=== PATIENT | male | born 1940 | race Caucasian/White ===

== ENCOUNTER 2020-03-30 14:35 | Inpatient (IN) ==
[2020-03-30] MEDS ORDERED: NON-FORMULARY MEDICATION 1 EACH EACH (Magic Mouthwash [Magic Mouthwash Blm] 10 ML) PO PRN (16:26)
[2020-03-30] MEDS ORDERED: dexAMETHasone 4 MG TABLET PO SCH (16:30)
[2020-03-30] MEDS: *HR* Metformin 500 MG TABLET PO SCH (18:57)
[2020-03-30] MEDS: *HR* Amiodarone 200 MG TABLET PO SCH (20:01)
[2020-03-30] MEDS: Apixaban 5 MG TABLET PO SCH (20:02)
[2020-03-31 06:25] LABS: Basophils % 0.3 %; Eosinophils % 0.2 %; Hematocrit 27.1 % (37.5-50.1); Hemoglobin 8.7 g/dL (12.9-16.9); Immature Granulocytes % 5.9 % (0-4); Lymphocytes # 0.9 K/mcL (0.6-4.6); Lymphocytes % 15.2 %; Mean Corpuscular HGB Conc 32.1 g/dL (31.6-35.5); Mean Corpuscular Hemoglobin 29.8 pg (28.0-33.3); Mean Corpuscular Volume 92.8 fL (83.0-100.0); Mean Platelet Volume 10.2 fL (9.4-12.4); Monocytes # 0.6 K/mcL (0.0-1.3); Neutrophils # 4.1 K/mcL (1.6-8.9); Platelet Count 365 K/mcL (140-400); Red Blood Count 2.92 M/mcL (4.19-5.50); Red Cell Distribution Width 21.3 % (11.5-14.5); Segmented Neutrophils % 68.4 %
[2020-03-31 06:44] LABS: BUN/Creatinine Ratio 7 (6-26); Blood Urea Nitrogen 10 mg/dL (8-23); Calcium 6.4 mg/dL (8.6-10.3); Carbon Dioxide 21 mEq/L (23-29); Chloride 110 mEq/L (98-107); Glucose 87 mg/dL (70-105); Osmolality,Calculated 290 (280-300); Phosphorous 2.2 mg/dL (2.7-4.5); Sodium 141 mEq/L (136-145); eGFR For African Americans > 60 (> 60); eGFR For Non-African Americans 52 (> 60)
[2020-03-31] MEDS ORDERED: *HR* Pioglitazone 15 MG TABLET PO SCH (09:00)
[2020-03-31] MEDS: *HR* Amiodarone 200 MG TABLET PO SCH ×2 (09:07→19:45)
[2020-03-31] MEDS: Apixaban 5 MG TABLET PO SCH ×2 (09:07→19:46)
[2020-03-31] MEDS: Folic Acid 1 MG TABLET PO SCH (09:08)
[2020-03-31] MEDS: *HR* Metformin 500 MG TABLET PO SCH ×2 (09:08→16:01)
[2020-03-31] MEDS: ANORO ELLIPTA IH SCH (09:39)
[2020-03-31] MEDS: Ipratropium/Albuterol Neb 3 ML IH SCH (09:39)
[2020-03-31 18:17] LABS: Folate > 22.3 ng/mL (3.0-16.0); Vitamin B12 > 1500 pg/mL (250-1100)
[2020-04-01] MEDS: *HR* Metformin 500 MG TABLET PO SCH ×2 (08:18→15:58)
[2020-04-01] MEDS: Folic Acid 1 MG TABLET PO SCH (08:18)
[2020-04-01] MEDS: Apixaban 5 MG TABLET PO SCH ×2 (08:18→21:41)
[2020-04-01] MEDS: *HR* Amiodarone 200 MG TABLET PO SCH ×2 (08:18→21:41)
[2020-04-01] MEDS: ANORO ELLIPTA IH SCH (08:42)
[2020-04-01] MEDS: Ipratropium/Albuterol Neb 3 ML IH SCH (08:42)
[2020-04-01 14:41] LABS: Hematocrit 30.4 % (37.5-50.1); Hemoglobin 9.6 g/dL (12.9-16.9); Mean Corpuscular HGB Conc 31.6 g/dL (31.6-35.5); Mean Corpuscular Hemoglobin 30.4 pg (28.0-33.3); Mean Corpuscular Volume 96.2 fL (83.0-100.0); Mean Platelet Volume 9.8 fL (9.4-12.4); Platelet Count 294 K/mcL (140-400); Red Blood Count 3.16 M/mcL (4.19-5.50); Red Cell Distribution Width 21.5 % (11.5-14.5)
[2020-04-01 14:56] LABS: Calcium 6.4 mg/dL (8.6-10.3); Potassium 3.2 mEq/L (3.5-5.1)
[2020-04-02] MEDS: Apixaban 5 MG TABLET PO SCH ×2 (08:23→20:48)
[2020-04-02] MEDS: Folic Acid 1 MG TABLET PO SCH (08:24)
[2020-04-02] MEDS: *HR* Amiodarone 200 MG TABLET PO SCH ×2 (08:24→20:48)
[2020-04-02] MEDS: *HR* Metformin 500 MG TABLET PO SCH ×2 (08:25→17:00)
[2020-04-02] MEDS: Ipratropium/Albuterol Neb 3 ML IH SCH (10:39)
[2020-04-02] MEDS: ANORO ELLIPTA IH SCH (10:40)
[2020-04-03] MEDS: Apixaban 5 MG TABLET PO SCH ×2 (08:36→21:10)
[2020-04-03] MEDS: *HR* Amiodarone 200 MG TABLET PO SCH ×2 (08:37→21:10)
[2020-04-03] MEDS: Folic Acid 1 MG TABLET PO SCH (08:37)
[2020-04-03] MEDS: *HR* Metformin 500 MG TABLET PO SCH ×2 (08:37→16:52)
[2020-04-03] MEDS: Ipratropium/Albuterol Neb 3 ML IH SCH (10:02)
[2020-04-03] MEDS: ANORO ELLIPTA IH SCH (10:03)
[2020-04-04 07:08] LABS: Hematocrit 27.8 % (37.5-50.1); Hemoglobin 8.5 g/dL (12.9-16.9); Mean Corpuscular HGB Conc 30.6 g/dL (31.6-35.5); Mean Corpuscular Hemoglobin 29.1 pg (28.0-33.3); Mean Corpuscular Volume 95.2 fL (83.0-100.0); Mean Platelet Volume 9.6 fL (9.4-12.4); Platelet Count 231 K/mcL (140-400); Red Blood Count 2.92 M/mcL (4.19-5.50); Red Cell Distribution Width 21.1 % (11.5-14.5); White Blood Count 7.7 K/mcL (4.3-11.1)
[2020-04-04 07:21] LABS: BUN/Creatinine Ratio 7 (6-26); Blood Urea Nitrogen 9 mg/dL (8-23); Calcium 6.4 mg/dL (8.6-10.3); Carbon Dioxide 27 mEq/L (23-29); Chloride 109 mEq/L (98-107); Glucose 88 mg/dL (70-105); Osmolality,Calculated 292 (280-300); Potassium 3.1 mEq/L (3.5-5.1); Sodium 142 mEq/L (136-145); eGFR For African Americans > 60 (> 60); eGFR For Non-African Americans 51 (> 60)
[2020-04-04] MEDS: Apixaban 5 MG TABLET PO SCH ×2 (07:47→20:25)
[2020-04-04] MEDS: *HR* Amiodarone 200 MG TABLET PO SCH ×2 (07:47→20:25)
[2020-04-04] MEDS: *HR* Metformin 500 MG TABLET PO SCH ×2 (07:47→17:25)
[2020-04-04] MEDS: ANORO ELLIPTA IH SCH (09:40)
[2020-04-04] MEDS: Ipratropium/Albuterol Neb 3 ML IH SCH (09:40)
[2020-04-05] MEDS: *HR* Metformin 500 MG TABLET PO SCH ×2 (08:31→16:37)
[2020-04-05] MEDS: Apixaban 5 MG TABLET PO SCH ×2 (08:31→20:01)
[2020-04-05] MEDS: *HR* Amiodarone 200 MG TABLET PO SCH ×2 (08:32→20:01)
[2020-04-05] MEDS: ANORO ELLIPTA IH SCH (08:42)
[2020-04-05] MEDS: Ipratropium/Albuterol Neb 3 ML IH SCH (08:42)
[2020-04-06] MEDS: *HR* OxyCODONE/APAP 7.5/325 TABLET PO PRN (01:25)
[2020-04-06] MEDS: Ipratropium/Albuterol Neb 3 ML IH SCH (08:20)
[2020-04-06] MEDS: ANORO ELLIPTA IH SCH (08:25)
[2020-04-06 09:24] LABS: Basophils # 0.1 K/mcL (0.0-0.2); Basophils % 0.6 %; Eosinophils # 0.1 K/mcL (0.0-0.6); Eosinophils % 1.6 %; Hematocrit 30.1 % (37.5-50.1); Hemoglobin 9.4 g/dL (12.9-16.9); Immature Granulocytes % 1.9 % (0-4); Lymphocytes # 1.8 K/mcL (0.6-4.6); Lymphocytes % 21.5 %; Mean Corpuscular HGB Conc 31.2 g/dL (31.6-35.5); Mean Corpuscular Hemoglobin 29.2 pg (28.0-33.3); Mean Corpuscular Volume 93.5 fL (83.0-100.0); Monocytes # 0.9 K/mcL (0.0-1.3); Neutrophils # 5.5 K/mcL (1.6-8.9); Platelet Count 257 K/mcL (140-400); Red Blood Count 3.22 M/mcL (4.19-5.50); Red Cell Distribution Width 20.5 % (11.5-14.5); Segmented Neutrophils % 64.4 %; White Blood Count 8.6 K/mcL (4.3-11.1)
[2020-04-06 09:39] LABS: BUN/Creatinine Ratio 9 (6-26); Blood Urea Nitrogen 10 mg/dL (8-23); Calcium 6.6 mg/dL (8.6-10.3); Carbon Dioxide 26 mEq/L (23-29); Chloride 106 mEq/L (98-107); Glucose 93 mg/dL (70-105); Osmolality,Calculated 293 (280-300); Potassium 3.2 mEq/L (3.5-5.1); Sodium 142 mEq/L (136-145); eGFR For African Americans > 60 (> 60); eGFR For Non-African Americans > 60 (> 60)
[2020-04-06] MEDS: *HR* Amiodarone 200 MG TABLET PO SCH ×2 (09:42→19:48)
[2020-04-06] MEDS: *HR* Metformin 500 MG TABLET PO SCH (09:42)
[2020-04-06] MEDS: Apixaban 5 MG TABLET PO SCH ×2 (09:42→19:48)
[2020-04-06] MEDS ORDERED: Isovue-370 500 ML BOTTLE IVP ONE (10:33)
[2020-04-06] MEDS: Insulin LISPRO 300 UNITS/3 ML VIAL SUBQ SCH ×3 (13:52→21:56)
[2020-04-06] MEDS: levoFLOXacin 750 MG/150 ML 750 MG/150 ML BAG IVPB SCH (14:13)
[2020-04-06] MEDS: Vancomycin 1,250 MG/262.5 ML IV.SOLN IVPB SCH (16:47)
[2020-04-07 05:49] LABS: Basophils # 0.1 K/mcL (0.0-0.2); Basophils % 0.7 %; Eosinophils # 0.1 K/mcL (0.0-0.6); Eosinophils % 1.7 %; Hematocrit 26.7 % (37.5-50.1); Hemoglobin 8.4 g/dL (12.9-16.9); Lymphocytes # 1.1 K/mcL (0.6-4.6); Lymphocytes % 14.3 %; Mean Corpuscular HGB Conc 31.5 g/dL (31.6-35.5); Mean Corpuscular Hemoglobin 29.6 pg (28.0-33.3); Mean Platelet Volume 10.1 fL (9.4-12.4); Monocytes # 0.8 K/mcL (0.0-1.3); Monocytes % 9.9 %; Neutrophils # 5.5 K/mcL (1.6-8.9); Platelet Count 244 K/mcL (140-400); Red Blood Count 2.84 M/mcL (4.19-5.50); Red Cell Distribution Width 20.5 % (11.5-14.5); Segmented Neutrophils % 71.4 %; White Blood Count 7.7 K/mcL (4.3-11.1)
[2020-04-07 06:04] LABS: BUN/Creatinine Ratio 9 (6-26); Blood Urea Nitrogen 11 mg/dL (8-23); Calcium 6.3 mg/dL (8.6-10.3); Carbon Dioxide 25 mEq/L (23-29); Chloride 105 mEq/L (98-107); Glucose 96 mg/dL (70-105); Osmolality,Calculated 289 (280-300); Potassium 3.4 mEq/L (3.5-5.1); Sodium 140 mEq/L (136-145); eGFR For African Americans > 60 (> 60); eGFR For Non-African Americans 58 (> 60)
[2020-04-07] MEDS: Insulin LISPRO 300 UNITS/3 ML VIAL SUBQ SCH ×3 (08:13→16:21)
[2020-04-07] MEDS: Apixaban 5 MG TABLET PO SCH ×2 (08:14→20:00)
[2020-04-07] MEDS: ANORO ELLIPTA IH SCH (08:21)
[2020-04-07] MEDS: *HR* Amiodarone 200 MG TABLET PO SCH ×2 (08:21→20:00)
[2020-04-07] MEDS: Ipratropium/Albuterol Neb 3 ML IH SCH (10:28)
[2020-04-07] MEDS: levoFLOXacin 750 MG/150 ML 750 MG/150 ML BAG IVPB SCH (14:38)
[2020-04-07] MEDS: Vancomycin 1,250 MG/262.5 ML IV.SOLN IVPB SCH (17:20)
[2020-04-08] MEDS: Insulin LISPRO 300 UNITS/3 ML VIAL SUBQ SCH ×5 (00:44→20:30)
[2020-04-08] MEDS: Apixaban 5 MG TABLET PO SCH ×2 (08:13→20:28)
[2020-04-08] MEDS: *HR* OxyCODONE/APAP 7.5/325 TABLET PO PRN ×2 (08:13→22:44)
[2020-04-08] MEDS: *HR* Amiodarone 200 MG TABLET PO SCH ×2 (08:13→20:27)
[2020-04-08] MEDS: Furosemide 20 MG TABLET PO SCH (08:13)
[2020-04-08] MEDS: Ipratropium/Albuterol Neb 3 ML IH SCH (09:39)
[2020-04-08] MEDS: ANORO ELLIPTA IH SCH (09:40)
[2020-04-08] MEDS: levoFLOXacin 750 MG/150 ML 750 MG/150 ML BAG IVPB SCH (15:14)
[2020-04-08] MEDS: Vancomycin 1,250 MG/262.5 ML IV.SOLN IVPB SCH (19:07)
[2020-04-09 07:51] LABS: Basophils % 0.5 %; Eosinophils # 0.3 K/mcL (0.0-0.6); Eosinophils % 3.2 %; Hematocrit 27.9 % (37.5-50.1); Hemoglobin 8.9 g/dL (12.9-16.9); Immature Granulocytes % 1.2 % (0-4); Lymphocytes # 1.4 K/mcL (0.6-4.6); Lymphocytes % 17.1 %; Mean Corpuscular HGB Conc 31.9 g/dL (31.6-35.5); Mean Corpuscular Hemoglobin 29.9 pg (28.0-33.3); Mean Corpuscular Volume 93.6 fL (83.0-100.0); Mean Platelet Volume 9.8 fL (9.4-12.4); Monocytes # 0.8 K/mcL (0.0-1.3); Monocytes % 9.7 %; Neutrophils # 5.6 K/mcL (1.6-8.9); Platelet Count 261 K/mcL (140-400); Red Blood Count 2.98 M/mcL (4.19-5.50); Red Cell Distribution Width 20.1 % (11.5-14.5); Segmented Neutrophils % 68.3 %; White Blood Count 8.3 K/mcL (4.3-11.1)
[2020-04-09 08:10] LABS: BUN/Creatinine Ratio 7 (6-26); Blood Urea Nitrogen 9 mg/dL (8-23); Calcium 6.6 mg/dL (8.6-10.3); Carbon Dioxide 27 mEq/L (23-29); Chloride 105 mEq/L (98-107); Glucose 107 mg/dL (70-105); Osmolality,Calculated 289 (280-300); Potassium 3.1 mEq/L (3.5-5.1); Sodium 140 mEq/L (136-145); eGFR For African Americans > 60 (> 60); eGFR For Non-African Americans 53 (> 60)
[2020-04-09] MEDS: Furosemide 20 MG TABLET PO SCH (09:23)
[2020-04-09] MEDS: Apixaban 5 MG TABLET PO SCH ×2 (09:23→21:01)
[2020-04-09] MEDS: *HR* Amiodarone 200 MG TABLET PO SCH ×2 (09:24→21:01)
[2020-04-09] MEDS: Insulin LISPRO 300 UNITS/3 ML VIAL SUBQ SCH ×4 (09:25→20:58)
[2020-04-09] MEDS: Ipratropium/Albuterol Neb 3 ML IH SCH (09:52)
[2020-04-09] MEDS: ANORO ELLIPTA IH SCH (09:55)
[2020-04-10] MEDS: ANORO ELLIPTA IH SCH (07:51)
[2020-04-10] MEDS: Ipratropium/Albuterol Neb 3 ML IH SCH (07:52)
[2020-04-10] MEDS: Insulin LISPRO 300 UNITS/3 ML VIAL SUBQ SCH ×4 (09:30→22:30)
[2020-04-10] MEDS: Apixaban 5 MG TABLET PO SCH ×2 (09:31→22:29)
[2020-04-10] MEDS: Furosemide 20 MG TABLET PO SCH (09:32)
[2020-04-10] MEDS: *HR* Amiodarone 200 MG TABLET PO SCH ×2 (09:32→22:29)
[2020-04-10] MEDS: levoFLOXacin 750 MG/150 ML 750 MG/150 ML BAG IVPB SCH (13:54)
[2020-04-10] MEDS: *HR* Metformin 500 MG TABLET PO SCH (16:02)
[2020-04-11 06:56] LABS: Hematocrit 28.3 % (37.5-50.1); Hemoglobin 8.8 g/dL (12.9-16.9); Mean Corpuscular HGB Conc 31.1 g/dL (31.6-35.5); Mean Corpuscular Hemoglobin 29.1 pg (28.0-33.3); Mean Corpuscular Volume 93.7 fL (83.0-100.0); Mean Platelet Volume 9.6 fL (9.4-12.4); Platelet Count 266 K/mcL (140-400); Red Blood Count 3.02 M/mcL (4.19-5.50); White Blood Count 7.6 K/mcL (4.3-11.1)
[2020-04-11 07:14] LABS: BUN/Creatinine Ratio 7 (6-26); Blood Urea Nitrogen 9 mg/dL (8-23); Carbon Dioxide 27 mEq/L (23-29); Chloride 104 mEq/L (98-107); Glucose 95 mg/dL (70-105); Osmolality,Calculated 286 (280-300); Potassium 3.3 mEq/L (3.5-5.1); Sodium 139 mEq/L (136-145); eGFR For African Americans > 60 (> 60); eGFR For Non-African Americans 55 (> 60)
[2020-04-11] MEDS: Ipratropium/Albuterol Neb 3 ML IH SCH (08:45)
[2020-04-11] MEDS: ANORO ELLIPTA IH SCH (08:45)
[2020-04-11] MEDS: Insulin LISPRO 300 UNITS/3 ML VIAL SUBQ SCH ×4 (08:56→22:02)
[2020-04-11] MEDS: Apixaban 5 MG TABLET PO SCH ×2 (08:59→20:13)
[2020-04-11] MEDS: *HR* Metformin 500 MG TABLET PO SCH ×2 (08:59→17:21)
[2020-04-11] MEDS: *HR* Amiodarone 200 MG TABLET PO SCH ×2 (08:59→20:13)
[2020-04-11] MEDS: Furosemide 20 MG TABLET PO SCH (09:00)
[2020-04-12] MEDS: Insulin LISPRO 300 UNITS/3 ML VIAL SUBQ SCH ×4 (07:33→20:56)
[2020-04-12] MEDS: *HR* Amiodarone 200 MG TABLET PO SCH ×2 (09:23→20:56)
[2020-04-12] MEDS: *HR* Metformin 500 MG TABLET PO SCH ×2 (09:23→16:20)
[2020-04-12] MEDS: Apixaban 5 MG TABLET PO SCH ×2 (09:23→20:56)
[2020-04-12] MEDS: Furosemide 20 MG TABLET PO SCH (09:24)
[2020-04-12] MEDS: *HR* OxyCODONE/APAP 7.5/325 TABLET PO PRN (09:28)
[2020-04-12] MEDS: Ipratropium/Albuterol Neb 3 ML IH SCH (09:38)
[2020-04-12] MEDS: ANORO ELLIPTA IH SCH (09:38)
[2020-04-12] MEDS: levoFLOXacin 750 MG/150 ML 750 MG/150 ML BAG IVPB SCH (12:57)
[2020-04-12] MEDS: *HR* OxyCODONE/APAP 7.5/325 TABLET PO SCH (16:20)
[2020-04-13] MEDS ORDERED: Ondansetron ODT 4 MG TAB.RAPDIS SL PRN (02:22)
[2020-04-13 06:56] LABS: BUN/Creatinine Ratio 10 (6-26); Blood Urea Nitrogen 13 mg/dL (8-23); Calcium 7.1 mg/dL (8.6-10.3); Carbon Dioxide 26 mEq/L (23-29); Chloride 101 mEq/L (98-107); Glucose 101 mg/dL (70-105); Osmolality,Calculated 282 (280-300); Potassium 3.5 mEq/L (3.5-5.1); Sodium 136 mEq/L (136-145); eGFR For African Americans > 60 (> 60); eGFR For Non-African Americans 52 (> 60)
[2020-04-13] MEDS: Ipratropium/Albuterol Neb 3 ML IH SCH (08:24)
[2020-04-13] MEDS: ANORO ELLIPTA IH SCH (08:24)
[2020-04-13] MEDS: Insulin LISPRO 300 UNITS/3 ML VIAL SUBQ SCH ×4 (08:56→22:01)
[2020-04-13] MEDS: *HR* Metformin 500 MG TABLET PO SCH ×2 (09:06→16:41)
[2020-04-13] MEDS: *HR* OxyCODONE/APAP 7.5/325 TABLET PO SCH ×3 (09:07→16:41)
[2020-04-13] MEDS: Magnesium Oxide 400 MG TABLET PO SCH ×2 (09:08→20:06)
[2020-04-13] MEDS: Furosemide 20 MG TABLET PO SCH (09:08)
[2020-04-13] MEDS: *HR* Amiodarone 200 MG TABLET PO SCH ×2 (09:08→20:06)
[2020-04-13] MEDS: Apixaban 5 MG TABLET PO SCH ×2 (09:08→20:07)
[2020-04-13] MEDS ORDERED: 0.9 % Sodium Chloride 1,000 ML IV ONE (10:45)
[2020-04-13] MEDS ORDERED: Hydrocortisone Sodium Succ 100 MG/2 ML VIAL IVP ONE (13:46)
[2020-04-13 14:36] LABS: Basophils % 0.4 %; Eosinophils # 0.2 K/mcL (0.0-0.6); Eosinophils % 2.9 %; Hematocrit 26.9 % (37.5-50.1); Hemoglobin 8.4 g/dL (12.9-16.9); Immature Granulocytes % 1.9 % (0-4); Lymphocytes # 1.3 K/mcL (0.6-4.6); Lymphocytes % 17.3 %; Mean Corpuscular HGB Conc 31.2 g/dL (31.6-35.5); Mean Corpuscular Hemoglobin 29.4 pg (28.0-33.3); Mean Corpuscular Volume 94.1 fL (83.0-100.0); Mean Platelet Volume 9.1 fL (9.4-12.4); Monocytes # 0.8 K/mcL (0.0-1.3); Monocytes % 10.6 %; Neutrophils # 4.8 K/mcL (1.6-8.9); Platelet Count 241 K/mcL (140-400); Red Blood Count 2.86 M/mcL (4.19-5.50); Red Cell Distribution Width 19.9 % (11.5-14.5); Segmented Neutrophils % 66.9 %; White Blood Count 7.2 K/mcL (4.3-11.1)
[2020-04-13 14:59] LABS: BUN/Creatinine Ratio 9 (6-26); Blood Urea Nitrogen 12 mg/dL (8-23); Calcium 6.9 mg/dL (8.6-10.3); Carbon Dioxide 25 mEq/L (23-29); Chloride 103 mEq/L (98-107); Glucose 96 mg/dL (70-105); Osmolality,Calculated 282 (280-300); Potassium 3.5 mEq/L (3.5-5.1); Sodium 136 mEq/L (136-145); eGFR For African Americans > 60 (> 60); eGFR For Non-African Americans 52 (> 60)
[2020-04-14] MEDS: Insulin LISPRO 300 UNITS/3 ML VIAL SUBQ SCH ×4 (07:43→21:00)
[2020-04-14] MEDS: *HR* Metformin 500 MG TABLET PO SCH ×2 (08:15→17:29)
[2020-04-14] MEDS: Furosemide 20 MG TABLET PO SCH (08:15)
[2020-04-14] MEDS: dexAMETHasone 4 MG TABLET PO SCH (08:15)
[2020-04-14] MEDS: *HR* Amiodarone 200 MG TABLET PO SCH ×2 (08:15→21:00)
[2020-04-14] MEDS: Magnesium Oxide 400 MG TABLET PO SCH ×2 (08:15→21:00)
[2020-04-14] MEDS: Apixaban 5 MG TABLET PO SCH ×2 (08:15→21:00)
[2020-04-14] MEDS: *HR* OxyCODONE/APAP 7.5/325 TABLET PO SCH (08:16)
[2020-04-14] MEDS: ANORO ELLIPTA IH SCH (09:16)
[2020-04-14] MEDS: Ipratropium/Albuterol Neb 3 ML IH SCH (09:16)
[2020-04-14] MEDS: Budesonide/Formoterol 160/4.5 1 PUFF INH IH SCH (21:41)
[2020-04-15] MEDS: Budesonide/Formoterol 160/4.5 1 PUFF INH IH SCH ×2 (08:46→21:06)
[2020-04-15] MEDS: Ipratropium/Albuterol Neb 3 ML IH SCH (08:46)
[2020-04-15] MEDS: *HR* Metformin 500 MG TABLET PO SCH ×2 (09:09→16:36)
[2020-04-15] MEDS: Insulin LISPRO 300 UNITS/3 ML VIAL SUBQ SCH ×4 (09:09→20:32)
[2020-04-15] MEDS: *HR* Amiodarone 200 MG TABLET PO SCH ×2 (09:10→20:31)
[2020-04-15] MEDS: dexAMETHasone 4 MG TABLET PO SCH (09:10)
[2020-04-15] MEDS: Apixaban 5 MG TABLET PO SCH ×2 (09:10→20:31)
[2020-04-15] MEDS: predniSONE 10 MG TABLET PO SCH (16:36)
[2020-04-15] MEDS: levoFLOXacin 750 MG TABLET PO SCH (16:36)
[2020-04-16] MEDS: levoFLOXacin 750 MG TABLET PO SCH (08:30)
[2020-04-16] MEDS: *HR* Amiodarone 200 MG TABLET PO SCH ×2 (08:30→20:45)
[2020-04-16] MEDS: dexAMETHasone 4 MG TABLET PO SCH (08:30)
[2020-04-16] MEDS: Apixaban 5 MG TABLET PO SCH ×2 (08:30→20:44)
[2020-04-16] MEDS: *HR* Metformin 500 MG TABLET PO SCH ×2 (08:30→18:09)
[2020-04-16] MEDS: predniSONE 10 MG TABLET PO SCH (08:30)
[2020-04-16] MEDS: Insulin LISPRO 300 UNITS/3 ML VIAL SUBQ SCH ×4 (08:31→20:47)
[2020-04-16] MEDS: Ipratropium/Albuterol Neb 3 ML IH SCH (10:43)
[2020-04-16] MEDS: Budesonide/Formoterol 160/4.5 1 PUFF INH IH SCH ×2 (10:43→22:29)
[2020-04-16] MEDS: Sennosides/Docusate Sodium TABLET PO SCH (20:47)
[2020-04-17] MEDS: Insulin LISPRO 300 UNITS/3 ML VIAL SUBQ SCH ×4 (07:59→20:57)
[2020-04-17] MEDS: predniSONE 10 MG TABLET PO SCH (08:00)
[2020-04-17] MEDS: *HR* Amiodarone 200 MG TABLET PO SCH ×2 (08:03→20:59)
[2020-04-17] MEDS: Apixaban 5 MG TABLET PO SCH ×2 (08:03→20:59)
[2020-04-17] MEDS: *HR* Metformin 500 MG TABLET PO SCH ×2 (08:03→17:26)
[2020-04-17] MEDS: Sennosides/Docusate Sodium TABLET PO SCH ×2 (08:04→20:59)
[2020-04-17] MEDS: levoFLOXacin 750 MG TABLET PO SCH (08:04)
[2020-04-17] MEDS: Ipratropium/Albuterol Neb 3 ML IH SCH (09:53)
[2020-04-17] MEDS: Budesonide/Formoterol 160/4.5 1 PUFF INH IH SCH ×2 (09:54→22:47)
[2020-04-18 06:38] LABS: Hematocrit 29.4 % (37.5-50.1); Hemoglobin 9.2 g/dL (12.9-16.9); Mean Corpuscular HGB Conc 31.3 g/dL (31.6-35.5); Mean Corpuscular Hemoglobin 29.9 pg (28.0-33.3); Mean Corpuscular Volume 95.5 fL (83.0-100.0); Mean Platelet Volume 9.2 fL (9.4-12.4); Platelet Count 252 K/mcL (140-400); Red Blood Count 3.08 M/mcL (4.19-5.50); Red Cell Distribution Width 20.4 % (11.5-14.5); White Blood Count 13.6 K/mcL (4.3-11.1)
[2020-04-18 07:14] LABS: BUN/Creatinine Ratio 16 (6-26); Blood Urea Nitrogen 18 mg/dL (8-23); Calcium 7.4 mg/dL (8.6-10.3); Carbon Dioxide 26 mEq/L (23-29); Chloride 101 mEq/L (98-107); Glucose 92 mg/dL (70-105); Osmolality,Calculated 282 (280-300); Potassium 3.8 mEq/L (3.5-5.1); Sodium 135 mEq/L (136-145); eGFR For African Americans > 60 (> 60); eGFR For Non-African Americans > 60 (> 60)
[2020-04-18] MEDS: Insulin LISPRO 300 UNITS/3 ML VIAL SUBQ SCH ×4 (10:30→22:01)
[2020-04-18] MEDS: Ipratropium/Albuterol Neb 3 ML IH SCH (11:02)
[2020-04-18] MEDS: Budesonide/Formoterol 160/4.5 1 PUFF INH IH SCH ×2 (11:02→22:46)
[2020-04-18] MEDS: *HR* Amiodarone 200 MG TABLET PO SCH ×2 (12:21→20:32)
[2020-04-18] MEDS: Apixaban 5 MG TABLET PO SCH ×2 (12:22→20:31)
[2020-04-18] MEDS: Sennosides/Docusate Sodium TABLET PO SCH ×2 (12:22→20:31)
[2020-04-18] MEDS: *HR* Metformin 500 MG TABLET PO SCH ×2 (12:22→20:36)
[2020-04-18] MEDS: predniSONE 10 MG TABLET PO SCH (12:22)
[2020-04-18] MEDS ORDERED: levoFLOXacin 750 MG TABLET PO SCH (12:30)
[2020-04-19] MEDS: Apixaban 5 MG TABLET PO SCH ×3 (07:52→20:09)
[2020-04-19] MEDS: *HR* Amiodarone 200 MG TABLET PO SCH ×3 (07:52→20:10)
[2020-04-19] MEDS: *HR* Metformin 500 MG TABLET PO SCH ×3 (07:52→17:14)
[2020-04-19] MEDS: levoFLOXacin 750 MG TABLET PO SCH (07:52)
[2020-04-19] MEDS: Sennosides/Docusate Sodium TABLET PO SCH ×3 (07:53→20:06)
[2020-04-19] MEDS: predniSONE 10 MG TABLET PO SCH ×2 (07:53→08:56)
[2020-04-19] MEDS: Insulin LISPRO 300 UNITS/3 ML VIAL SUBQ SCH ×4 (08:05→20:14)
[2020-04-19] MEDS: Budesonide/Formoterol 160/4.5 1 PUFF INH IH SCH ×2 (09:43→22:22)
[2020-04-19] MEDS: Ipratropium/Albuterol Neb 3 ML IH SCH (09:43)
[2020-04-19] MEDS: Saline Nasal Spray 44 ML BOTTLE NS PRN (17:29)
[2020-04-20] MEDS: Insulin LISPRO 300 UNITS/3 ML VIAL SUBQ SCH ×4 (07:49→21:57)
[2020-04-20] MEDS: Apixaban 5 MG TABLET PO SCH ×2 (08:41→21:56)
[2020-04-20] MEDS: *HR* Metformin 500 MG TABLET PO SCH ×2 (08:41→17:21)
[2020-04-20] MEDS: predniSONE 10 MG TABLET PO SCH (08:41)
[2020-04-20] MEDS: *HR* Amiodarone 200 MG TABLET PO SCH ×2 (08:41→21:55)
[2020-04-20] MEDS: Sennosides/Docusate Sodium TABLET PO SCH ×2 (08:42→21:57)
[2020-04-20] MEDS: Ipratropium/Albuterol Neb 3 ML IH SCH (09:05)
[2020-04-20] MEDS: Budesonide/Formoterol 160/4.5 1 PUFF INH IH SCH ×2 (09:05→21:27)
[2020-04-20] MEDS: Saline Nasal Spray 44 ML BOTTLE NS PRN ×2 (11:43→17:24)
[2020-04-21] MEDS: Sennosides/Docusate Sodium TABLET PO SCH ×2 (08:24→20:41)
[2020-04-21] MEDS: *HR* Metformin 500 MG TABLET PO SCH ×2 (08:25→17:02)
[2020-04-21] MEDS: predniSONE 10 MG TABLET PO SCH (08:25)
[2020-04-21] MEDS: Apixaban 5 MG TABLET PO SCH ×2 (08:25→20:42)
[2020-04-21] MEDS: Insulin LISPRO 300 UNITS/3 ML VIAL SUBQ SCH ×4 (08:26→20:43)
[2020-04-21] MEDS: *HR* Amiodarone 200 MG TABLET PO SCH ×2 (08:26→20:42)
[2020-04-21] MEDS: Budesonide/Formoterol 160/4.5 1 PUFF INH IH SCH ×2 (10:52→21:02)
[2020-04-21] MEDS: Ipratropium/Albuterol Neb 3 ML IH SCH (10:52)
[2020-04-22] MEDS: Insulin LISPRO 300 UNITS/3 ML VIAL SUBQ SCH ×4 (07:45→21:38)
[2020-04-22 08:18] LABS: Alanine Aminotransferase 9 Units/L (7-52); Albumin 2.6 g/dL (3.5-5.7); Alkaline Phosphatase 56 Units/L (34-104); Aspartate Amino Transferase 13 Units/L (13-39); BUN/Creatinine Ratio 15 (6-26); Bilirubin,Total 0.4 mg/dL (0.3-1.0); Blood Urea Nitrogen 14 mg/dL (8-23); Carbon Dioxide 27 mEq/L (23-29); Chloride 97 mEq/L (98-107); Globulin 2.7 g/dL (2.4-3.5); Glucose 91 mg/dL (70-105); Osmolality,Calculated 272 (280-300); Potassium 3.4 mEq/L (3.5-5.1); Sodium 131 mEq/L (136-145); Total Protein 5.3 g/dL (6.4-8.9); eGFR For African Americans > 60 (> 60); eGFR For Non-African Americans > 60 (> 60)
[2020-04-22] MEDS: Sennosides/Docusate Sodium TABLET PO SCH ×2 (08:30→21:36)
[2020-04-22] MEDS: predniSONE 10 MG TABLET PO SCH (08:30)
[2020-04-22] MEDS: *HR* Amiodarone 200 MG TABLET PO SCH ×2 (08:31→21:37)
[2020-04-22] MEDS: Finasteride 5 MG TABLET PO SCH (08:31)
[2020-04-22] MEDS: Apixaban 5 MG TABLET PO SCH ×2 (08:31→21:37)
[2020-04-22] MEDS: *HR* Metformin 500 MG TABLET PO SCH ×2 (08:31→18:38)
[2020-04-22 09:10] LABS: Hematocrit 28.3 % (37.5-50.1); Mean Corpuscular HGB Conc 31.8 g/dL (31.6-35.5); Mean Corpuscular Hemoglobin 29.6 pg (28.0-33.3); Mean Corpuscular Volume 93.1 fL (83.0-100.0); Mean Platelet Volume 9.4 fL (9.4-12.4); Platelet Count 217 K/mcL (140-400); Red Blood Count 3.04 M/mcL (4.19-5.50); Red Cell Distribution Width 20.9 % (11.5-14.5); White Blood Count 13.6 K/mcL (4.3-11.1)
[2020-04-22] MEDS ORDERED: polyethylene glycoL 3350 17 GM POWD.PACK PO PRN (09:20)
[2020-04-22] MEDS: Budesonide/Formoterol 160/4.5 1 PUFF INH IH SCH ×2 (10:06→21:15)
[2020-04-22] MEDS: Ipratropium/Albuterol Neb 3 ML IH SCH (10:06)
[2020-04-22] MEDS: 0.9 % Sodium Chloride 1,000 ML IVC SCH ×2 (13:42→21:38)
[2020-04-23] MEDS: 0.9 % Sodium Chloride 1,000 ML IVC SCH ×4 (06:34→21:13)
[2020-04-23] MEDS: Insulin LISPRO 300 UNITS/3 ML VIAL SUBQ SCH ×4 (07:30→20:25)
[2020-04-23] MEDS: Ipratropium/Albuterol Neb 3 ML IH SCH (08:38)
[2020-04-23] MEDS: Budesonide/Formoterol 160/4.5 1 PUFF INH IH SCH ×2 (08:38→22:01)
[2020-04-23] MEDS: predniSONE 10 MG TABLET PO SCH (08:48)
[2020-04-23] MEDS: Apixaban 5 MG TABLET PO SCH ×2 (08:50→20:25)
[2020-04-23] MEDS: Sennosides/Docusate Sodium TABLET PO SCH ×2 (08:50→20:25)
[2020-04-23] MEDS: Finasteride 5 MG TABLET PO SCH (08:50)
[2020-04-23] MEDS: *HR* Amiodarone 200 MG TABLET PO SCH ×2 (08:50→20:25)
[2020-04-23] MEDS: *HR* Metformin 500 MG TABLET PO SCH ×2 (08:50→17:16)
[2020-04-23] MEDS: Saline Nasal Spray 44 ML BOTTLE NS PRN (12:03)
[2020-04-24] MEDS: Insulin LISPRO 300 UNITS/3 ML VIAL SUBQ SCH ×4 (07:44→20:40)
[2020-04-24] MEDS: Sennosides/Docusate Sodium TABLET PO SCH ×2 (08:22→20:39)
[2020-04-24] MEDS: *HR* Metformin 500 MG TABLET PO SCH ×2 (08:23→17:33)
[2020-04-24] MEDS: *HR* Amiodarone 200 MG TABLET PO SCH ×2 (08:23→20:39)
[2020-04-24] MEDS: Apixaban 5 MG TABLET PO SCH ×2 (08:24→20:39)
[2020-04-24] MEDS: Finasteride 5 MG TABLET PO SCH (08:24)
[2020-04-24] MEDS: predniSONE 10 MG TABLET PO SCH (08:24)
[2020-04-24] MEDS: Budesonide/Formoterol 160/4.5 1 PUFF INH IH SCH ×2 (09:01→21:19)
[2020-04-24] MEDS: Ipratropium/Albuterol Neb 3 ML IH SCH (09:02)
[2020-04-24] MEDS: Saline Nasal Spray 44 ML BOTTLE NS PRN (12:13)
[2020-04-25] MEDS: Insulin LISPRO 300 UNITS/3 ML VIAL SUBQ SCH ×5 (08:45→22:15)
[2020-04-25] MEDS: Megestrol Acetate 400 MG/10 ML UDC PO SCH (09:12)
[2020-04-25] MEDS: Sennosides/Docusate Sodium TABLET PO SCH ×2 (09:12→22:14)
[2020-04-25] MEDS: Finasteride 5 MG TABLET PO SCH (09:15)
[2020-04-25] MEDS: *HR* Metformin 500 MG TABLET PO SCH ×2 (09:15→17:56)
[2020-04-25] MEDS: *HR* Amiodarone 200 MG TABLET PO SCH ×2 (09:15→22:14)
[2020-04-25] MEDS: predniSONE 10 MG TABLET PO SCH (09:15)
[2020-04-25] MEDS: Apixaban 5 MG TABLET PO SCH ×2 (09:15→22:14)
[2020-04-25] MEDS: Ipratropium/Albuterol Neb 3 ML IH SCH (09:36)
[2020-04-25] MEDS: Budesonide/Formoterol 160/4.5 1 PUFF INH IH SCH ×2 (09:37→22:19)
[2020-04-25 11:01] LABS: Basophils % 0.1 %; Eosinophils # 0.1 K/mcL (0.0-0.6); Eosinophils % 0.7 %; Hematocrit 31.2 % (37.5-50.1); Hemoglobin 9.9 g/dL (12.9-16.9); Immature Granulocytes % 2.1 % (0-4); Lymphocytes # 1.4 K/mcL (0.6-4.6); Lymphocytes % 10.2 %; Mean Corpuscular HGB Conc 31.7 g/dL (31.6-35.5); Mean Corpuscular Hemoglobin 30.7 pg (28.0-33.3); Mean Corpuscular Volume 96.6 fL (83.0-100.0); Mean Platelet Volume 9.1 fL (9.4-12.4); Monocytes # 1.1 K/mcL (0.0-1.3); Monocytes % 8.3 %; Neutrophils # 10.8 K/mcL (1.6-8.9); Platelet Count 202 K/mcL (140-400); Red Blood Count 3.23 M/mcL (4.19-5.50); Red Cell Distribution Width 21.1 % (11.5-14.5); Segmented Neutrophils % 78.6 %; White Blood Count 13.7 K/mcL (4.3-11.1)
[2020-04-25 11:16] LABS: Alanine Aminotransferase 8 Units/L (7-52); Albumin 2.8 g/dL (3.5-5.7); Alkaline Phosphatase 61 Units/L (34-104); Aspartate Amino Transferase 12 Units/L (13-39); BUN/Creatinine Ratio 12 (6-26); Bilirubin,Total 0.6 mg/dL (0.3-1.0); Blood Urea Nitrogen 11 mg/dL (8-23); Calcium 7.9 mg/dL (8.6-10.3); Carbon Dioxide 25 mEq/L (23-29); Chloride 98 mEq/L (98-107); Globulin 2.7 g/dL (2.4-3.5); Glucose 110 mg/dL (70-105); Osmolality,Calculated 272 (280-300); Potassium 4.2 mEq/L (3.5-5.1); Sodium 131 mEq/L (136-145); Total Protein 5.5 g/dL (6.4-8.9); eGFR For African Americans > 60 (> 60); eGFR For Non-African Americans > 60 (> 60)
[2020-04-26] MEDS: Insulin LISPRO 300 UNITS/3 ML VIAL SUBQ SCH ×2 (07:56→11:45)
[2020-04-26] MEDS: Ipratropium/Albuterol Neb 3 ML IH SCH (08:50)
[2020-04-26] MEDS: Budesonide/Formoterol 160/4.5 1 PUFF INH IH SCH (08:50)
[2020-04-26] MEDS: *HR* Amiodarone 200 MG TABLET PO SCH (09:49)
[2020-04-26] MEDS: Apixaban 5 MG TABLET PO SCH (09:49)
[2020-04-26] MEDS: Finasteride 5 MG TABLET PO SCH (09:50)
[2020-04-26] MEDS: predniSONE 10 MG TABLET PO SCH (09:50)
[2020-04-26] MEDS: Megestrol Acetate 400 MG/10 ML UDC PO SCH (09:51)
[2020-04-26] MEDS: *HR* Metformin 500 MG TABLET PO SCH (09:51)
[2020-04-26] MEDS ORDERED: Ringers Solution, Lactated 1,000 ML IVC ONE (11:17)
[2020-04-26] MEDS: Sennosides/Docusate Sodium TABLET PO SCH (11:40)
[2020-04-26 11:45] LABS: Basophils % 0.1 %; Eosinophils # 0.1 K/mcL (0.0-0.6); Eosinophils % 0.5 %; Hematocrit 30.9 % (37.5-50.1); Immature Granulocytes % 1.8 % (0-4); Lymphocytes # 1.2 K/mcL (0.6-4.6); Lymphocytes % 8.9 %; Mean Corpuscular HGB Conc 32.4 g/dL (31.6-35.5); Mean Corpuscular Hemoglobin 30.6 pg (28.0-33.3); Mean Corpuscular Volume 94.5 fL (83.0-100.0); Mean Platelet Volume 9.2 fL (9.4-12.4); Monocytes # 0.8 K/mcL (0.0-1.3); Monocytes % 6.4 %; Neutrophils # 10.8 K/mcL (1.6-8.9); Platelet Count 212 K/mcL (140-400); Red Blood Count 3.27 M/mcL (4.19-5.50); Red Cell Distribution Width 20.7 % (11.5-14.5); Segmented Neutrophils % 82.3 %; White Blood Count 13.1 K/mcL (4.3-11.1)
[2020-04-26] MEDS ORDERED: Piperacillin/Tazobactam 3.375 GM in 0.9 % Sodium Chloride Mini Bag 100 ML IVPB SCH (12:00)
[2020-04-26 12:04] LABS: BUN/Creatinine Ratio 13 (6-26); Blood Urea Nitrogen 14 mg/dL (8-23); Calcium 8.2 mg/dL (8.6-10.3); Carbon Dioxide 26 mEq/L (23-29); Chloride 97 mEq/L (98-107); Glucose 132 mg/dL (70-105); Osmolality,Calculated 274 (280-300); Potassium 4.3 mEq/L (3.5-5.1); Sodium 131 mEq/L (136-145); eGFR For African Americans > 60 (> 60); eGFR For Non-African Americans > 60 (> 60)
[2020-04-26 14:43] VITALS: BP 92/49
== END 2020-04-26 13:55 | disposition short-term general hospital (02) | DRG 945 ==
LOC: INPPIK 17:22
PROVIDERS: ADMIT Family Medicine; ATTEND Family Medicine